=== PATIENT | male | born 1975 | race Caucasian/White ===

== ENCOUNTER → 2021-06-11 | Day surgery (SDC) | payer BC ==
[2021-06-10 15:27] LABS: Absolute Lymphocytes (CBC) 1.7 K/uL (0.7-4.9); Basophils % 0.7 % (0-1.3); Hematocrit 41.7 % (39.6-49.0); Lymphocytes % 24.7 % (15.3-44.8); MPV 7.8 fL (7.6-11.3); RBC Red Blood Cell Count 4.54 M/uL (4.33-5.43)
[2021-06-10 15:47] LABS: Potassium 4.1 mmol/L (3.5-5.1)
--- NOTE | 2021-06-10 15:49 | RAD REPORT ---
EXAM DESCRIPTION: RAD - Chest Pa And Lat (2 Views) - 06/10/2021 3:00 pm CLINICAL HISTORY: PRE-OP COMPARISON: August 2016 TECHNIQUE: Frontal and lateral views of the chest were obtained. FINDINGS: The lungs are clear. Heart size is normal and central vasculature is within normal limit s. No pleural effusion or pneumothorax seen. No acute bony finding noted. No aortic abnormality. IMPRESSION: No acute cardiopulmonary process. No significant change from comparison study.
[~2021-06-11] MED LIST: ACETAMINOPHEN 500 MG TAB ONE; BUPIVACAINE 0.5% PF 10 ML VIAL ONE; CEFAZOLIN/NS 1gm 1 GM/50 ML BAG ONE; CELECOXIB 100 MG CAPSULE ONE; FENTANYL CITR 100 MCG/2 ML ONE; HYDROCODONE/APAP 7.5/325 MG TAB ONE; KETOROLAC 30 MG/ML INJ ONE; LIDOCAINE 1% MPF 5 ML VIAL ONE; MIDAZOLAM HCL 2 MG/2 ML INJ ONE; Mastisol Adhesive Liq ONE; ONDANSETRON 4 MG/2 ML VIAL ONE; Ringers Lactate 1,000 ML IV ONE; propofoL 200 MG/20 ML VIAL IV ONE
[2021-06-11 09:27] VITALS: O2SAT 98
--- NOTE | 2021-06-11 09:38 | OP ---
Date of Procedure: 06/11/2021 Surgeon: Bryan Saini MD [employer] Torch Brazier: Ac Pettit, surgical orderly. Preoperative Diagnosis: Right inguinal hernia. Postoperative Diagnosis: Right inguinal hernia. Procedure: Repair of right inguinal hernia. Estimated Blood Loss: Minimal. Specimen: Cord lipoma. Findings: Direct right inguinal hernia. Anesthesia: General. Complications: None. Disposition: The patient tolerated procedure in stable condition, taken to Recovery in good general condition. Procedure In Detail: The patient was brought to the OR and placed in supine position. General anest hesia begun. The patient was prepped and draped in usual sterile fashion. Marcaine 0.5% was infiltr ated locally. A 15-blade was used to make a 4 cm incision in the right groin between the pubic tuber gisselle and the anterior iliac superior spine. Subcutaneous tissue divided. Rob's fascia identified and divided. Aponeurosis identified and mobilized inferiorly to expose shuffling edge. Then aponeur osis opened through the external ring. Ilioinguinal nerve and cord mobilized and skeletonized and th ere was no indirect sac seen. There was a cord lipoma which was excised and based tied with 3-0 director clinical research yumiko and sent to Pathology. There was a directors hernia, large, which was reduced back into the ventura toneal cavity and inguinal floor was recreated by using 2-0 prolene starting at the pubic tubercle, t o create a new floor by joining the conjoined tendon to the shelving edge. Then, a new internal ring was created, Marlex mesh plug was placed and secured with the VersaTack stapler. All the mesh was p laced on the inguinal floor, secured medially to the pubic tubercle, inferiorly to the shelving edge and superiorly to the conjoined tendon, laterally to each other. The ilioinguinal nerve and cord str uctures were placed back in their anatomical location and then 2-0 Prolene was used to close the apon eurosis. 3-0 chromic was used to close Rob's fascia. 4-0 Monocryl was used to close skin. Steri le dressing applied. The patient awakened and taken to Recovery in good general condition. Discharge Note: The patient will go to Day Surgery and home when stable. Disposition: Home. Condition: Stable. Discharge Instructions: Resume home medications and diet. Activity as tolerated. No heavy lifting. Remove outer dressing in 2 days. Shower. Keep wound clean and dry. Keep Steri-Strips on at all t imes. Follow up in my office in 1 week. Call for appointment. Tylenol No. 4 one tablet p.o. q.4 p. r.n. pain. /MODL Voice ID: [id number] Report ID: [id number]
[2021-06-11 10:45] VITALS: BP 130/62; TEMP 97.2
== END ==
LOC: OR 06:41
PROVIDERS: ATTEND Surgery
PROC: 0YU50JZ Supplement Right Inguinal Region with Synthetic Substitute, Open Approach (ICD-10-PCS; principal; 2021-06-11 07:30)
DX: K40.90 Unilateral inguinal hernia, without obstruction or gangrene, not specified as recurrent (principal); Z20.822 Contact with and (suspected) exposure to COVID-19
CPT/HCPCS: 93005; 85025; 80048; 36415; 88302; 71046; 49505; U0003; J2704; J2250; J3010; J0690; J7120; J2405